=== PATIENT | male | born 1950 | race Caucasian/White ===

== ENCOUNTER 2017-07-27 13:05 | Observation (INO) ==
--- NOTE | 2017-07-27 13:20 | Emergency Department Note ---
Disposition Clinical Impression: Transient cerebral ischemia Qualifiers: Transient cerebral ischemia type: unspecified Qualified Code(s): G45.9 - Transient cerebral ischemic attack, unspecified Disposition: Admitted As Inpatient Condition: Good Referrals: NONE,PCP [Primary Care Provider] - Forms: ED Satisfaction Letter Time of Disposition: 13:47 Neuro HPI - General Chief Complaint: ED Neuro Symptoms/Deficit Stated Complaint: Neuro Symptoms Time Seen by Provider: 07/27/17 13:18 Source: patient Mode of arrival: ambulatory Limitations: no limitations Nursing Notes Reviewed: Yes Vital Signs Reviewed: Yes - History of Present Illness HPI Narrative: 66-year-old was out hunting mushrooms and developed acute onset of left arm numbness and left facial numbness and some slurred speech. Patient got a new partial yesterday so is not sure if the speech is related to that or if it was a new onset today. Onset of Symptoms Date: 07/27/17 Onset of Symptoms Time: 11:00 Symptom Onset Unknown: No Timing confirmed by: other (Patient) Location: speech, left face, left arm History of same: No Severity: mild, moderate Quality: numbness Symptoms Improving: No Improves with: none Worsens with: none Context: sudden onset On Anticoagulants: No Associated symptoms: Reports: denies other symptoms - Related Data Home Medications: Home Medications Medication Instructions Recorded Confirmed Amlodipine Besylate 10 mg PO DAILY 02/20/17 07/27/17 Aspirin [Lo-Dose Aspirin EC] 81 mg PO DAILY 02/20/17 07/27/17 Gluc 2Kcl/Chondr/Sotero Hy/Hy AC 1 tab PO DAILY 02/20/17 07/27/17 [Glucosamine & Chondroitin Cap] Multivitamin [One Daily Essential] 1 tab PO DAILY 02/20/17 07/27/17 Pantoprazole Sodium [Protonix] 40 mg PO BID 02/20/17 07/27/17 Previous Rx's Medication Instructions Recorded Clindamycin HCl 150 mg PO Q6H 2 Days #7 capsule 02/19/17 Allergies/Adverse Reactions: Allergies Allergy/AdvReac Type Severity Reaction Status Date / Time No Known Allergies Allergy Verified 07/27/17 13:34 All systems ED: reviewed and negative except as stated. Constitutional: Denies: fever, chills, weakness, weight change Eyes: Denies: eye pain, eye discharge, vision change ENT ED: Denies: ear pain, throat pain, dental pain, hearing loss, epistaxis, congestion, dysphagia Cardiovascular: Denies: chest pain, palpitations, dyspnea on exertion, edema, syncope Respiratory: Denies: cough, dyspnea, wheezes, hemoptysis, stridor Gastrointestinal: Denies: abdominal pain, nausea, vomiting, diarrhea, constipation, hematemesis, melena, hematochezia Genitourinary: Denies: urgency, dysuria, frequency, hematuria Musculoskeletal: Denies: back pain, neck pain, arthralgia, myalgia Integumentary: Denies: rash, abrasion, lesions Neurological: Reports: numbness, other (Some slurred speech). Denies: headache , weakness, paresthesias, confusion, abnormal gait, vertigo Psychiatric: Denies: anxiety, depression, suicidal thoughts, homicidal thoughts , auditory hallucinations, visual hallucinations Endocrine: Denies: fatigue Hematological/Lymphatic: Denies: easy bleeding, easy bruising Allergic/Immunologic: Denies: facial swelling, urticaria Past Medical History - Past Medical History Psychiatric history: Reports: no psych history - Social History Smoking Status: Former smoker Smokeless Tobacco Status: No Alcohol use: Reports: rarely Drug use: Reports: none Physical Exam - General Limitations: no limitations General appearance: alert, in no apparent distress - Head Head exam: atraumatic, normocephalic, normal inspection - Eye Eye exam: Present: normal appearance, PERRL, EOMI - ENT ENT exam: normal exam, normal oropharynx, mucous membranes moist - Neck Neck exam: Present: normal inspection, full ROM, trachea midline - Chest Chest inspection: Present: normal inspection, symmetric chest wall rise - Respiratory Respiratory exam: Present: normal lung sounds bilaterally - Cardiovascular Cardiovascular exam: Present: regular rate, normal rhythm, normal heart sounds - Abdominal Exam Abdominal exam: Present: soft, Non-Tender. Absent: tenderness, distention, guarding, rebound, rigidity - Extremities Exam Extremities exam: Present: normal inspection, full ROM. Absent: tenderness, pedal edema - Expanded Lower Extremity Exam Neurovascular/Tendon exam: Present: sensory deficit (Some slurred speech and right arm), other Gait: not tested/not observed - Back Exam Back exam: Present: normal inspection, full ROM. Absent: tenderness - Neurological Exam Neurological exam: Present: alert, oriented X3 - Psychiatric Psychiatric exam: Present: normal affect, normal mood - Skin Skin exam: Present: warm, dry, intact, normal color Course - Reevaluation(s) Reevaluation #1: 66-year-old with acute onset right arm numbness and right facial numbness. A stroke alert was called evaluated by [facility] did not feel patient was a TPA candidate recommended admission for stroke workup. Time: 14:36 - Consultations Consultation #1: Consult with Dr. Selin Freeman neurology [facility] stroke alert. The patient was evaluated via tele-stroke and was not found to be a TPA candidate but recommended admission for stroke workup. Time: 13:45 Consultation #2: Discussed with Dr. Conteh, admit Time: 14:57 Vital Signs Temperature 97.9 F 07/27/17 13:11 Pulse Rate 81 07/27/17 13:11 Respiratory Rate 18 07/27/17 13:11 Blood Pressure 150/84 07/27/17 13:11 O2 Sat by Pulse Oximetry 96 07/27/17 13:11 Temperature 97.9 F 07/27/17 13:20 Pulse Rate 70 07/27/17 14:00 Respiratory Rate 20 07/27/17 14:00 Blood Pressure 150/95 07/27/17 14:00 O2 Sat by Pulse Oximetry 96 07/27/17 14:00 Oxygen Delivery Oxygen Delivery Room Air Neuro Symptoms/Deficit - Lab Data Result diagrams: 07/27/17 13:22 07/27/17 13:22 Lab Results 07/27/17 07/27/17 07/27/17 Range/Units 13:09 13:22 13:22 WBC 7.2 (4.3-11.1) K/mcL RBC 4.88 (4.19-5.50) M/mcL Hgb 14.9 (12.9-16.9) g/dL Hct 43.2 (37.5-50.1) % MCV 88.5 (83.0-100.0) fL MCH 30.5 (28.0-33.3) pg MCHC 34.5 (31.6-35.5) g/dL RDW 12.6 (11.5-14.5) % Plt Count 210 (140-400) K/mcL MPV 9.5 (9.4-12.4) fL Immature Gran % 0.3 (0-4) % Seg Neutrophils % 71.9 % Lymphocytes % 16.0 % Monocytes % 8.4 % Eosinophils % 2.8 % Basophils % 0.6 % Neutrophils # 5.2 (1.6-8.9) K/mcL Lymphocytes # 1.2 (0.6-4.6) K/mcL Monocytes # 0.6 (0.0-1.3) K/mcL Eosinophils # 0.2 (0.0-0.6) K/mcL Basophils # 0.0 (0.0-0.2) K/mcL PT 11.7 (9.4-12.1) Seconds INR 1.1 APTT 34.0 (26.0-36.0) Seconds Sodium (136-145) mEq/L Potassium (3.5-5.1) mEq/L Chloride (98-107) mEq/L Carbon Dioxide (23-29) mEq/L BUN (8-23) mg/dL Creatinine (0.70-1.30) mg/dL Est GFR ( Amer) (> 60) Est GFR (Non-Af Amer) (> 60) BUN/Creatinine Ratio (6-26) Glucose (70-105) mg/dL POC Glucose 103 H (70-99) mg/dL Calculated Osmolality (280-300) Calcium (8.6-10.3) mg/dL Troponin I (< 0.04) ng/mL 07/27/17 Range/Units 13:22 WBC (4.3-11.1) K/mcL RBC (4.19-5.50) M/mcL Hgb (12.9-16.9) g/dL Hct (37.5-50.1) % MCV (83.0-100.0) fL MCH (28.0-33.3) pg MCHC (31.6-35.5) g/dL RDW (11.5-14.5) % Plt Count (140-400) K/mcL MPV (9.4-12.4) fL Immature Gran % (0-4) % Seg Neutrophils % % Lymphocytes % % Monocytes % % Eosinophils % % Basophils % % Neutrophils # (1.6-8.9) K/mcL Lymphocytes # (0.6-4.6) K/mcL Monocytes # (0.0-1.3) K/mcL Eosinophils # (0.0-0.6) K/mcL Basophils # (0.0-0.2) K/mcL PT (9.4-12.1) Seconds INR APTT (26.0-36.0) Seconds Sodium 141 (136-145) mEq/L Potassium 3.9 (3.5-5.1) mEq/L Chloride 109 H (98-107) mEq/L Carbon Dioxide 26 (23-29) mEq/L BUN 18 (8-23) mg/dL Creatinine 1.28 (0.70-1.30) mg/dL Est GFR ( Amer) > 60 (> 60) Est GFR (Non-Af Amer) 57 L (> 60) BUN/Creatinine Ratio 14 (6-26) Glucose 98 (70-105) mg/dL POC Glucose (70-99) mg/dL Calculated Osmolality 294 (280-300) Calcium 9.7 (8.6-10.3) mg/dL Troponin I < 0.03 (< 0.04) ng/mL - EKG Data EKG attestation: Yes I reviewed and interpreted this EKG. EKG shows normal: sinus rhythm Rate: normal Rhythm: NSR Crescent/QRS: normal Interpretation: no acute changes NIH Stroke Scale - Level of Consciousness LOC: Alert - LOC Questions LOC Questions: Answers both correctly - LOC Commands LOC Commands: Performs both correctly - Best Gaze Best Gaze: Normal - Visual Visual: No visual loss - Facial Palsy Facial Palsy: Normal - Motor Arms Motor Arm-Left: No drift for 10 seconds Motor Arm-Right: No drift for 10 seconds - Motor Legs Motor Leg-Left: No drift for 5 seconds Motor Leg-Right: No drift for 5 seconds - Limb Ataxia Limb Ataxia: Normal, No Ataxia - Sensory Sensory: Mild to moderate loss, "not as sharp" - Best Language Best Language: No aphasia - Dysarthria Dysarthria: Mild, slurs some words - Extinction and Inattention Extinction and Inattention: Normal - NIHSS Total Score NIHSS Total Score: 2 TPA Checklist - Eligibilty for IV tPA 1. LKW equal to or less than 4.5 hours be before treatment: Yes 2. Clinical diagnosis of ischemic stroke causing deficit: No 3. Age 18 years or older: Yes - Contraindications 4. Evidence of intracranial hemorrhage on pretreatment CT: No 5. Presentation suggests subarachnoid hem, even if CT normal: No 6. CT shows multilobar infarction: No 7. Known neoplasm, arteriovenous malformation, or aneurysm: No 8. Significant head trauma (w/ LOC) or CVA in last 3 months: No 9. BP elevated (systolic > 185 or diastolic > 110): No 10. Abnormal Blood Glucose (<50 or >400mg/dl): No 11. Active internal bleeding [PM.TPA15]: No 12. Known bleeding risk (including; not limited to 13-15): No 13. Heparin/argatroban/bivalirudin w/in 48hrs & PTT > normal: No 14. Platelet count less than 100,000/MM3: No 15. Current or recent use of anticoagualants (see protocol): No - Warnings/Precautions Considerations 16. Prior ischemic stroke within last 3 months: No 17. Recent history of intracranial hemorrhage: No 18. : No 19. Current/recent use Effient (7 days) or Brilinta (5 days): No 20. Arterial puncture at non compressible site or LP >7days: No 21. Major surgery or serious trauma in last 14 days: No 22. GI or urinary tract hemorrhage in last 21 days: No 23. NC involving left anterior myocardium in last 3 months: No 24. Suspected or known infective endocarditis/pericarditis: No - LKW: 3-4.5 hrs Add. Warnings/Precautions 21. oral anticoag other than warfarin regardles of last dose: No Patient/family understanding: The patient/family members have been counseled and understood the risk, benefit , and alternatives of treatment.
[2017-07-27 13:28] LABS: Basophils % 0.6 %; Eosinophils % 2.8 %; Hematocrit 43.2 % (37.5-50.1); Hemoglobin 14.9 g/dL (12.9-16.9); Immature Granulocytes % 0.3 % (0-4); Mean Corpuscular HGB Conc 34.5 g/dL (31.6-35.5); Mean Corpuscular Hemoglobin 30.5 pg (28.0-33.3); Mean Corpuscular Volume 88.5 fL (83.0-100.0); Mean Platelet Volume 9.5 fL (9.4-12.4); Monocytes % 8.4 %; Platelet Count 210 K/mcL (140-400); Red Blood Count 4.88 M/mcL (4.19-5.50); Red Cell Distribution Width 12.6 % (11.5-14.5); Segmented Neutrophils % 71.9 %
[2017-07-27 13:29] LABS: Eosinophils # 0.2 K/mcL (0.0-0.6); Lymphocytes # 1.2 K/mcL (0.6-4.6); Monocytes # 0.6 K/mcL (0.0-1.3); Neutrophils # 5.2 K/mcL (1.6-8.9)
[2017-07-27 13:37] LABS: INR 1.1; Prothrombin Time 11.7 Seconds (9.4-12.1)
[2017-07-27 13:43] LABS: BUN/Creatinine Ratio 14 (6-26); Blood Urea Nitrogen 18 mg/dL (8-23); Calcium 9.7 mg/dL (8.6-10.3); Carbon Dioxide 26 mEq/L (23-29); Chloride 109 mEq/L (98-107); Glucose 98 mg/dL (70-105); Osmolality,Calculated 294 (280-300); Potassium 3.9 mEq/L (3.5-5.1); Sodium 141 mEq/L (136-145); eGFR For African Americans > 60 (> 60); eGFR For Non-African Americans 57 (> 60)
[2017-07-27 13:48] LABS: Troponin I < 0.03 ng/mL (< 0.04)
[2017-07-27] MEDS ORDERED: Aspirin 81 MG TAB.CHEW PO ONE (15:06)
--- NOTE | 2017-07-27 15:40 | Internal Med History&Physical ---
<Jose Maddox - Last Filed: 07/27/17 16:39> Date of Encounter: 07/27/17 Time of Encounter: 15:15 Internal Medicine - H&P: HPI Chief complaint: RUE and R Facial Numbness Admitted From: Home Plans for Post Hospital Care: Home History of present illness: Mr. Winn is a 66 year old male with prior medical history of hypertension and GERD who presented to [facility] this afternoon after development of RUE and R facial numbness at 1100 today. He reports that he had been [place] and suddenly developed numbness. He states that at the same time he felt somewhat lightheaded and stumbled a little, but did not lose consciousness and recovered quickly. He states that he then drove himself to the hospital. After he had been at [facility] for a little bit he developed a slight headache, but denies having had this earlier. [facility]eneuro was contacted and he was evaluated initially by Dr. Selin Freeman who recommended admission for CVA workup as he was not a candidate for TPA. He denies having any weakness, loss of vision, or slurred speech. Past Med Surg Social Fam HX - Past Medical History Medical history: GERD, hyperlipidemia, hypertension Psychiatric history: no psych history - Social History Smoking Status: Former smoker Smokeless Tobacco Status: No Alcohol use: rarely Drug use: none Internal Medicine - H&P: Meds Clindamycin HCl 150 mg PO Q6H 2 Days #7 capsule 02/19/17 [Rx] Amlodipine Besylate 10 mg PO DAILY 02/20/17 [History] Aspirin [Lo-Dose Aspirin EC] 81 mg PO DAILY 02/20/17 [History] Gluc 2Kcl/Chondr/Sotero Hy/Hy AC [Glucosamine & Chondroitin Cap] 1 tab PO DAILY [History] Multivitamin [One Daily Essential] 1 tab PO DAILY 02/20/17 [History] Pantoprazole Sodium [Protonix] 40 mg PO BID 02/20/17 [History] 3 Allergy/AdvReac Type Severity Reaction Status Date / Time No Known Allergies Allergy Verified 07/27/17 13:34 - Constitutional Constitutional: no chills, no fatigue, no fever(s), no weakness - EENT Eyes: no blurry vision, no change in vision, no diplopia, no loss of peripheral vision, no loss of vision, no pain, no photophobia Ears: decreased hearing (chronic hearing loss in R ear) Nose, mouth and throat: other (Dentures placed yesterday) - Cardiovascular Cardiovascular ROS IM: lightheadedness (transient, as per HPI), no chest pain, no diaphoresis, no dyspnea, no palpitations, no syncope - Respiratory Respiratory: no cough, no dyspnea, no pain on inspiration - Gastrointestinal Gastrointestinal: no abdominal pain, no constipation, no diarrhea, no nausea, no vomiting - Genitourinary Genitourinary ROS male: no dysuria, no hematuria - Musculoskeletal Musculoskeletal ROS IM: numbness (as per HPI), no muscle weakness, no neck pain , no tingling - Neurological Neurological ROS: abnormal hearing (chronic R hearing loss), headache(s), numbness (as per HPI), no confusion, no dizziness, no focal weakness, no frequent falls, no loss of vision, no tingling, no tremor(s), no weakness - Constitutional Vitals: Temp Pulse Resp BP Pulse Ox 97.9 F 68 20 148/93 97 07/27/17 13:20 07/27/17 15:04 07/27/17 15:04 07/27/17 15:04 07/27/17 15:04 General appearance: Present: cooperative, A&O X 3, pleasant, obese - Head Head exam: Present: atraumatic, normocephalic - Eye Eye exam: Present: EOMI, normal appearance, PERRL, sclera anicteric. Absent: conjunctival injection Pupils: Present: normal accommodation, PERRL - ENT ENT exam: Present: mucous membranes moist - Neck Neck exam general surgery: Present: supple, trachea midline. Absent: nuchal rigidity Additional comments: No carotid bruits on ascultation - Respiratory Respiratory exam: Present: CTAB. Absent: rales, respiratory distress, rhonchi, stridor, wheezes - Cardiovascular Cardiovascular exam: Present: RRR, +S1, +S2. Absent: JVD, rubs - GI/Abdominal GI/Abdominal exam: Present: normal bowel sounds, soft. Absent: guarding, tenderness - Extremities Exam Extremities exam: Present: normal inspection, warm, radial pulses palpable and symmetrical. Absent: pedal edema - Neurological Exam Neurological exam: Present: alert, CN II-XII intact, motor sensory deficit ( Numbness in right arm, shoulder and lower face), oriented X3, reflexes normal, strengths equal and symetr throughout. Absent: facial droop (difficult to ascertain as patient had dental work done yesterday), speech deficit (patient had dentures placed yesterday) - Psychiatric Psychiatric exam: Present: normal affect, normal mood. Absent: agitated, anxious - Skin Skin exam: Present: dry, intact. Absent: diaphoretic, rash Internal Med - H&P Results - Labs CBC & Chem 7: 07/27/17 13:22 07/27/17 13:22 - Assessment and plan (1) Transient cerebral ischemia Current Visit: Yes Status: Acute Assessment and plan: Patient has continued numbness in RUE and R face that has not improved since this morning No other deficits noted CT performed 07/27/17 showed no acute abnormalities No significant findings seen in pt's labs Will consult neurology and appreciate their recommendations Will obtain carotid dopplers and Echocardiogram MRI of patient head/brain Place on telemetry Patient given full dose aspirin in ER will continue low dose aspirin Start lipitor Allow permissive hypertension and hold patient home amlodipine will hold unless sbp > 180 Qualifiers: Transient cerebral ischemia type: unspecified Qualified Code(s): G45.9 - Transient cerebral ischemic attack, unspecified (2) Hypertension Current Visit: Yes Status: Chronic Assessment and plan: Patient has chronic htn and is normally on amlodipine Will allow permissive hypertension and hold amlodipine for now will give amlodipine for sbp > 180 Qualifiers: Hypertension type: essential hypertension Qualified Code(s): I10 - Essential (primary) hypertension (3) DVT prophylaxis Current Visit: Yes Status: Acute Assessment and plan: 5000 U heparin SQ TID - Time Spent With Patient Total time spent is greater than 50% in coordination of care (as documented) at patient's floor/unit and/or counseling patient: <SilvanoMike myersGeovani T - Last Filed: 07/27/17 17:00> Date of Encounter: 07/27/17 Internal Medicine - H&P: HPI History of present illness: Mr. Winn is a 66 year old male All Systems PM: A 10-system review of systems was performed and is negative for pertinent findings except as documented above in the HPI. - Constitutional Vitals: Temp Pulse Resp BP Pulse Ox 97.9 F 69 20 142/92 99 07/27/17 13:20 07/27/17 16:25 07/27/17 16:25 07/27/17 16:25 07/27/17 16:00 Internal Med - H&P Results - Labs CBC & Chem 7: 07/27/17 13:22 07/27/17 13:22 - Attending Attestation I examined this patient and my medical decision-making was reviewed with the Resident Physician on 07/27/17. I agree with the documented findings, disposition and treatment plan as described except to the extent set forth below. RUE, Chest wall and facial sensory deficits, no carotid bruit, no motor weakness or cerebellar symptoms or signs. Agree with plan, as documented above - Assessment and plan (1) Transient cerebral ischemia Current Visit: Yes Status: Acute Qualifiers: Transient cerebral ischemia type: unspecified Qualified Code(s): G45.9 - Transient cerebral ischemic attack, unspecified (2) Hypertension Current Visit: Yes Status: Chronic Qualifiers: Hypertension type: essential hypertension Qualified Code(s): I10 - Essential (primary) hypertension (3) DVT prophylaxis Current Visit: Yes Status: Acute - Time Spent With Patient Total time spent is greater than 50% in coordination of care (as documented) at patient's floor/unit and/or counseling patient:
[2017-07-27] MEDS ORDERED: Naloxone 0.4 MG/ML INJ IVP PRN (15:41)
--- NOTE | 2017-07-27 19:52 | Event Note ---
<Elen Josue - Last Filed: 07/27/17 19:50> Date of Encounter: 07/27/17 Time of Encounter: 19:50 Received Critical result from Radiology. 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 Called Dr. Davis and made him aware of results. He advised to keep ASA 81mg and start Plavix, continue with cardiac monitoring. Signout will be given to morning team in am. <Dino Orozco - Last Filed: 07/28/17 21:38> Date of Encounter: 07/28/17 I examined this patient and my medical decision-making was reviewed with the Resident Physician. I agree with the documented findings, disposition and treatment plan as described except to the extent set forth below. agree with above
[2017-07-27] MEDS: *HR* Heparin 5,000 UNIT/ML VIAL SQ SCH (21:12)
[2017-07-28] MEDS: *HR* Heparin 5,000 UNIT/ML VIAL SQ SCH (05:08)
[2017-07-28 05:51] LABS: Basophils % 0.5 %; Eosinophils # 0.3 K/mcL (0.0-0.6); Eosinophils % 5.1 %; Hematocrit 39.7 % (37.5-50.1); Immature Granulocytes % 0.2 % (0-4); Lymphocytes # 1.3 K/mcL (0.6-4.6); Mean Corpuscular HGB Conc 35.3 g/dL (31.6-35.5); Mean Corpuscular Hemoglobin 31.6 pg (28.0-33.3); Mean Corpuscular Volume 89.6 fL (83.0-100.0); Mean Platelet Volume 9.8 fL (9.4-12.4); Monocytes # 0.6 K/mcL (0.0-1.3); Monocytes % 10.5 %; Neutrophils # 3.6 K/mcL (1.6-8.9); Platelet Count 199 K/mcL (140-400); Red Blood Count 4.43 M/mcL (4.19-5.50); Red Cell Distribution Width 12.6 % (11.5-14.5); Segmented Neutrophils % 61.7 %
[2017-07-28 06:12] LABS: BUN/Creatinine Ratio 14 (6-26); Blood Urea Nitrogen 16 mg/dL (8-23); Carbon Dioxide 25 mEq/L (23-29); Chloride 109 mEq/L (98-107); Chol/HDL Ratio 5.2 (0-4.9); Cholesterol 167 mg/dL (< 200); Glucose 89 mg/dL (70-105); HDL Cholesterol 32 mg/dL (40-59); LDL Cholesterol,Calculated 106 mg/dL (0-99); Magnesium 2.2 mg/dL (1.6-2.6); Osmolality,Calculated 293 (280-300); Potassium 3.9 mEq/L (3.5-5.1); Sodium 141 mEq/L (136-145); Triglycerides 145 mg/dL (< 150); eGFR For African Americans > 60 (> 60); eGFR For Non-African Americans > 60 (> 60)
[2017-07-28] MEDS ORDERED: Aspirin Enteric Coated 81 MG Tablet PO SCH (09:00)
--- NOTE | 2017-07-28 09:33 | Neurology - Consult Note ---
Date of Encounter: 07/28/17 Time of Encounter: 07:25 Assessment and Plan (1) Left middle cerebral artery stroke Current Visit: Yes Status: Acute Per MRI report patient noted to have a left frontal lobe infarct without any significant focal motor weakness. He did have a sensory symptoms predominantly on the right side but otherwise he is doing fairly well. He has been on aspirin at home I suggest adding Plavix aspirin could be discontinued after a few days of overlap do not think that he would require dual antiplatelet therapy. Following's are my recommendations. For secondary stroke prevention patient should continue daily antiplatelet medication and vascular risk factor modification. Order the following test, *MRI of the brain without contrast. *Antiplatelet medication, Plavix 75 mg daily. *NO Need for physical therapy/ rehabilitation, patient did not have any focal motor deficit that would require any rehabilitation * To reduce the risk of future ischemic stroke patient need continued vascular risk modification, following's are the recommended guidelines LDL goal less than 70 MG per deciliter Diabetes management Blood pressure control should achieve less than 130/80 mmHg BP management should aim to achieve long-term control in a reasonable amount of time. weight management goal for BMI is 18.5 -24.9 Kg/m2 Alcohol : No more than 2 drinks per day for men Patient to continue to follow-up with his primary care physician for continued outpatient risk factor management and modification. If echocardiogram / carotid are negative and no evidence of any atrial fibrillation patient remained stable he could be discharged later in the day History of Present Illness HPI: Mr. Winn is a 66 year old male with PMH of hypertension and GERD who presented to [facility] this afternoon after development of RUE and R facial numbness at 1100 today. He reports that he had been [place] in [place] and suddenly developed numbness. He also felt somewhat lightheaded and stumbled a little, but did not lose consciousness and recovered quickly. . After he had been at [facility] for a little bit he developed a slight headache, but denies having had this earlier. [facility] was contacted Considering patient low NIH score he was not a candidate for any TPA therapy was admitted for further workup Later he had a MRI of the brain which confirmed left frontal lobe infarct Patient denies any new focal motor weakness beside his paresthesias on the right side he is not having much symptoms He denies having any weakness, loss of vision, or slurred speech. Past Med Surg Social Fam HX - Past Medical History Medical history: GERD, hyperlipidemia, hypertension Psychiatric history: no psych history - Social History Smoking Status: Former smoker Smokeless Tobacco Status: No Alcohol use: rarely Drug use: none Medications and Allergies Clindamycin HCl 150 mg PO Q6H 2 Days #7 capsule 02/19/17 [Rx] Amlodipine Besylate 10 mg PO DAILY 02/20/17 [History] Aspirin [Lo-Dose Aspirin EC] 81 mg PO DAILY 02/20/17 [History] Gluc 2Kcl/Chondr/Sotero Hy/Hy AC [Glucosamine & Chondroitin Cap] 1 tab PO DAILY [History] Multivitamin [One Daily Essential] 1 tab PO DAILY 02/20/17 [History] Pantoprazole Sodium [Protonix] 40 mg PO BID 02/20/17 [History] 3 Allergy/AdvReac Type Severity Reaction Status Date / Time No Known Allergies Allergy Verified 07/27/17 13:34 All Systems: The remainder of the systems were reviewed and are negative Physical Examination - Vital Signs Vital Signs: Initial Vital Signs Temp Pulse Resp BP Pulse Ox 97.9 F 81 18 150/84 96 07/27/17 13:11 07/27/17 13:11 07/27/17 13:11 07/27/17 13:11 07/27/17 13:11 - Exam Exam: GENERAL: Comfortable in no acute distress HEENT: Normal LUNGS: CTA HEART: RRR, S1 S2 Audible, no murmur EXTREMITIES: No Pedal edema. DETAILED NEUROLOGICAL EXAMINATION: MENTAL STATUS: Oriented to person, place, date and situation. Memory: knows the President, Aware of recent events Recent Memory Intact Cranial Nerve Examination: CN - II: Visual Acuity, Field of Vision Normal, Fundus examination: No disk edema, Pupils- size shape reaction to light and accommodation: All normal. CN III, IV, : External ocular movements were intact, Pupils were reactive, Nodrooping of the eyelids CN V: Sensation over the face to light touch and pinprick all normal. Corneal reflexes not tested, jaw jerk normal. CN VII: No facial asymmetry, no flattening of nasolabial folds, no difficulty in closing the eyes, no loss of forehead wrinkles, no difficulty in eye-closure, frowning raising eyebrows. CNVIII: No significant hearing loss CN IX, X: Uvula centralized not deviated, Gag reflex: Not tested CN X1: Sternocleidomastoid, trapezius, normal or evidence of any weakness. CN X11: No Dysarthria, no wasting or fibrilation f tongue muscles, no deviation, tongue muscle strength normal. Motor examination: No hypertrophy, tone was normal, power grade 0-5 Upper limbs Proximal- No difficulty in lifting the arms above the head. Distal- No weakness in distal muscles On formal testing 5/5 all over Lower limbs On formal testing 5/5 all over Coordination: [id number] normal. Target pursuit normal finger tapping normal, Rapid alternating moment of wrist normal Sensory system: Superficial sensations- Touch normal. Pain- Pinprick, Temperature all normal, Deep sensation normal, Joint position sense normal. Cortical sensation, Tactile discrimination, localization and extinction all normal. Deep tendon reflexes. Symmetrical bilateral, No evidence of Babinski. No sign of meningeal irritation Gait Examination: Patient is is standing without any difficulty with his gait and balance is trying to adjust thermostat in the room and he feels too hot Results - Laboratory Findings CBC and BMP: 07/28/17 05:12 07/28/17 05:12 Abnormal lab findings: Abnormal lab results Chloride 109 mEq/L (98-107) H 07/28/17 05:12 POC Glucose 103 mg/dL (70-99) H 07/27/17 13:09 LDL Cholesterol, Calc 106 mg/dL (0-99) H 07/28/17 05:12 HDL Cholesterol 32 mg/dL (40-59) L 07/28/17 05:12 Cholesterol/HDL Ratio 5.2 (0-4.9) H 07/28/17 05:12 - Diagnostic Findings Additional findings: Mri of the brain shows acute left frontal lobe infarct Consult Discharge Plan - Plan Referrals: Lavell Nair DO [Primary Care Provider] - 08/07/17 9:30 am
--- NOTE | 2017-07-28 10:47 | Internal Med Progress Note ---
Date of Encounter: 07/28/17 Time of Encounter: 10:44 - Assessment and plan (1) Transient cerebral ischemia Current Visit: Yes Status: Acute Assessment and plan: Patient continues to have RUE and R sided numbness without other deficits. CT without acute findings. MRI revealing acute left frontal lobe infarcts in the middle cerebral artery territory. Neurology consult reviewed, recommend aspirin and plavix, to discontinue aspirin in 1 week. Pending echo and pending carotid dopplers. Echo with EF 60%, normal LV, mild LV diastolic dysfunction, normal RV, negative for agitates saline study. Ultrasound carotid revealed normal ight side and left nonstenotic plaques in mid CCA. Continue Lipitor -Okay for discharge. Qualifiers: Transient cerebral ischemia type: other Qualified Code(s): G45.8 - Other transient cerebral ischemic attacks and related syndromes (2) Hypertension Current Visit: Yes Status: Chronic Assessment and plan: Patient has chronic htn and is normally on amlodipine Bp controlled 126-131/79-89 Will allow permissive hypertension and hold amlodipine for now will give amlodipine for sbp > 180 Qualifiers: Hypertension type: essential hypertension Qualified Code(s): I10 - Essential (primary) hypertension (3) DVT prophylaxis Current Visit: Yes Status: Acute Assessment and plan: heparin subcutneous for dvt ppx. - Time Spent With Patient Total time spent is greater than 50% in coordination of care (as documented) at patient's floor/unit and/or counseling patient: - Subjective Interval history: Patient did well overnight without new complaints. Continues to have numbness of right neck, right upper chest, and right upper arm. Improved right arm strength. Denies fevers, chills, sweats, headaches, nausea, vomiting, changes in vision, chest pain, shorntess of breath or cough, abdominal pain, change in bowels or bladder, new weakness, new loss of sensation, or rash. - Constitutional Vitals: Temp Pulse Resp BP Pulse Ox 97.7 F 67 17 126/79 96 07/28/17 07:22 07/28/17 07:22 07/28/17 07:22 07/28/17 07:22 07/28/17 07:22 General appearance: Present: cooperative, A&O X 3, pleasant, no acute distress, obese, answers questions appropriately - Head Head exam: Present: atraumatic, normal inspection, normocephalic - Eye Eye exam: Present: EOMI, normal appearance, PERRL - ENT ENT exam: Present: mucous membranes moist, normal exam, normal oropharynx - Neck Neck exam general surgery: Present: full ROM, normal inspection, supple, trachea midline - Respiratory Respiratory exam: Present: CTAB. Absent: rales, rhonchi, wheezes - Cardiovascular Cardiovascular exam: Present: RRR, +S1, +S2 - GI/Abdominal GI/Abdominal exam: Present: normal bowel sounds, soft. Absent: tenderness - Extremities Exam Extremities exam: Present: full ROM, normal inspection, warm, radial pulses palpable and symmetrical. Absent: pedal edema - Neurological Exam Neurological exam: Present: alert, strengths equal and symetr throughout. Absent: facial droop, speech deficit Additional comments: decreased sensation right upper chest, right arm, and right side of neck - Skin Skin exam: Present: dry, intact, normal color, warm Internal Medicine: Result - Labs CBC & Chem 7: 07/28/17 05:12 07/28/17 05:12 Labs: Short CBC 07/28/17 Range/Units 05:12 WBC 5.7 (4.3-11.1) K/mcL Hgb 14.0 (12.9-16.9) g/dL Hct 39.7 (37.5-50.1) % Plt Count 199 (140-400) K/mcL Neutrophils # 3.6 (1.6-8.9) K/mcL BMP 07/28/17 05:12 Sodium 141 Potassium 3.9 Chloride 109 H Carbon Dioxide 25 BUN 16 Creatinine 1.12 Glucose 89 Calcium 9.0 - ABG Interpretation ABG results: PT/INR, D-dimer PT 11.7 Seconds (9.4-12.1) 07/27/17 13:22 - Impressions Impressions Brain MRI 07/27/17 15:41 IMPRESSION: Acute left frontal lobe infarcts in the middle cerebral artery territory. D/ / 07/27/2017 19:22:02 Mayo Fletcher MD / [facility] Interpreting Provider: Mayo Fletcher MD Consult Discharge Plan - Plan Referrals: Lavell Nair DO [Primary Care Provider] - 08/07/17 9:30 am
[2017-07-28 11:44] VITALS: BP 135/81
[2017-07-28 12:26] LABS: Estimated Average Glucose 117 mg/dl; Hemoglobin A1C 5.7 %
--- NOTE | 2017-07-28 13:43 | Discharge Summary ---
<Chuck Navarro - Last Filed: 07/28/17 14:02> - NOTES TO OUTPATIENT PROVIDER Notes to Outpatient Provider: Patient has a left frontal lobe infarcts from middle cerebral artery territotry with symptoms of numbness of right arm face and upper chest. Echo normal, Carotid with right normal, left with mid CCA nonstenotic plaques. Discharged with Lipitor 40mg and to take plavix, but to continue with aspirin for next 7 days only. Continue amlodipine on discharge. A1C 5.7, counseled on prediabetes. Date of Encounter: 07/28/17 Time of Encounter: 13:41 - Discharge Diagnosis (1) Transient cerebral ischemia Priority: Primary Status: Acute Assessment and Plan: Patient continues to have RUE and R sided numbness without other deficits. CT without acute findings. MRI revealing acute left frontal lobe infarcts in the middle cerebral artery territory. Neurology consult reviewed, recommend aspirin and plavix, to discontinue aspirin in 1 week. Pending echo and pending carotid dopplers. Echo with EF 60%, normal LV, mild LV diastolic dysfunction, normal RV, negative for agitates saline study. Ultrasound carotid revealed normal ight side and left nonstenotic plaques in mid CCA. Continue Lipitor -Okay for discharge. Qualifiers: Transient cerebral ischemia type: other Qualified Code(s): G45.8 - Other transient cerebral ischemic attacks and related syndromes (2) Hypertension Priority: Secondary Status: Chronic Assessment and Plan: Patient has chronic htn and is normally on amlodipine Bp controlled 126-131/79-89 Will allow permissive hypertension and hold amlodipine for now will give amlodipine for sbp > 180 Qualifiers: Hypertension type: essential hypertension Qualified Code(s): I10 - Essential (primary) hypertension (3) Prediabetes Priority: Secondary Status: Acute Assessment and Plan: A1C 5.7% Hospital course: Mr. Winn is a 66 year old male - Time Spent with Patient Total time spent providing and/or coordinating discharge services: - Discharge Medications Prescriptions: Atorvastatin [Lipitor] 40 mg PO HS #30 tablet Clopidogrel [Plavix] 75 mg PO DAILY #30 tablet Home Medications: Amlodipine Besylate 10 mg PO DAILY 02/20/17 [History] Aspirin [Lo-Dose Aspirin EC] 81 mg PO DAILY 02/20/17 [History] Gluc 2Kcl/Chondr/Sotero Hy/Hy AC [Glucosamine & Chondroitin Cap] 1 tab PO DAILY [History] Multivitamin [One Daily Essential] 1 tab PO DAILY 02/20/17 [History] Pantoprazole Sodium [Protonix] 40 mg PO BID 02/20/17 [History] Atorvastatin [Lipitor] 40 mg PO HS #30 tablet 07/28/17 [Rx] Clopidogrel [Plavix] 75 mg PO DAILY #30 tablet 07/28/17 [Rx] Allergies/Adverse Reactions: 3 Allergy/AdvReac Type Severity Reaction Status Date / Time No Known Allergies Allergy Verified 07/27/17 13:34 Date of admission: 07/27/17 15:25 Primary care physician: Lavell Nair, Consults: 07/27/17 15:45 Consult to Neurology [CONS] Routine Consulting Provider: [facility] Reason for Consult: Numbness since 11am. CVA/TIA Call Completed: Yes Discharging clinician: Chuck Peguero) Anticipated date of discharge: 07/28/17 - Constitutional Vitals: Temp Pulse Resp BP Pulse Ox 97.6 F 61 18 135/81 96 07/28/17 11:42 07/28/17 11:42 07/28/17 11:42 07/28/17 11:42 07/28/17 11:42 General appearance: Present: cooperative, A&O X 3, pleasant, no acute distress, obese, answers questions appropriately - Head Head exam: Present: atraumatic, normal inspection, normocephalic - Eye Eye exam: Present: EOMI, normal appearance, PERRL - ENT ENT exam: Present: mucous membranes moist, normal exam - Neck Neck exam general surgery: Present: full ROM, normal inspection, supple, trachea midline - Respiratory Respiratory exam: Present: CTAB - Cardiovascular Cardiovascular exam: Present: RRR - Extremities Exam Extremities exam: Present: full ROM, normal inspection, warm, radial pulses palpable and symmetrical. Absent: tenderness - Neurological Exam Neurological exam: Present: alert, CN II-XII intact, normal gait, oriented X3, no focal deficits, strengths equal and symetr throughout. Absent: facial droop , speech deficit Additional comments: numbness of right face, right neck, right upper chest, and right upper extremity with normal strenght all extremities. - Skin Skin exam: Present: dry, intact, normal color, warm - Patient Status Disposition: Home, Self-Care Condition: Good Functional capacity at discharge: independent ambulation Overall status at discharge: patient is progressing back to baseline - Discharge Instructions Instructions: Atorvastatin (By mouth), Clopidogrel (By mouth), Ischemic Stroke (DC), Ischemic Stroke (GEN), Chronic Hypertension (DC) Follow Up With: Lavell Nair DO [Primary Care Provider] - 08/07/17 9:30 am - Diet and Activity Activity: return to work once cleared by your PCP/specialist Diet: diabetic diet, low fat, low cholesterol, low salt diet <Geovani Vega T - Last Filed: 07/28/17 15:06> Date of Encounter: 07/28/17 - Discharge Diagnosis (1) Transient cerebral ischemia Status: Acute Qualifiers: Transient cerebral ischemia type: other Qualified Code(s): G45.8 - Other transient cerebral ischemic attacks and related syndromes (2) Hypertension Status: Chronic Qualifiers: Hypertension type: essential hypertension Qualified Code(s): I10 - Essential (primary) hypertension (3) Prediabetes Status: Acute Hospital course: Mr. Winn is a 66 year old male Discharge discussed with: patient, family, nurse, case management, financial services consultant - Time Spent with Patient Total time spent providing and/or coordinating discharge services: Less than 30 minutes Date of admission: 07/27/17 15:25 Primary care physician: Lavell Nair, Consults: 07/27/17 15:45 Consult to Neurology [CONS] Routine Consulting Provider: [facility] Reason for Consult: Numbness since 11am. CVA/TIA Call Completed: Yes - Constitutional Vitals: Temp Pulse Resp BP Pulse Ox 97.6 F 61 18 135/81 96 07/28/17 11:42 07/28/17 11:42 07/28/17 11:42 07/28/17 11:42 07/28/17 11:42 - Attending Attestation I examined this patient and my medical decision-making was reviewed with the Resident Physician on 07/28/17. I agree with the documented findings, disposition and treatment plan as described except to the extent set forth below. Admitted to observation with Ischemic CVA of the L MCA territory, tele without events, EKG is sinus, ECHO and Carotid unremarkable. Neurology eval noted-for ASA and Plavix overlap for one week, then, continue plavix and Lipitor , continue home dose of Norvasc. Neuro deficit is only RUE numbness, no motor, speech or facial paralysis. New pre-DM diagnosis, follow up with PCP. Stable to be discharged home on current meds. Plan of care discussed, verbalizes understanding. Rest of details as in resident physician's documentation
--- NOTE | 2017-07-29 13:34 | Electrocardiograph Report ---
[place] [id number] Test Date: 2017-07-27 Pat Name: Librado Winn Department: 104 Room: [facility] Gender: M Emergency Room Specialist: TMR : 1950 Requested By: Geovani Vega Order Number: [id number] Reading MD: Samuel Stevens Measurements Intervals [place] Rate: 82 P: 41 ND: 155 QRS: -14 QRSD: 93 T: 53 QT: 348 QTc: 386 Interpretive Statements SINUS RHYTHM BASELINE ARTIFACT Electronically Signed On 07-29-2017 13:32:34 EDT by Samuel Stevens
== END 2017-07-28 15:09 | disposition home or self-care (01) ==
LOC: SUATTDRO → EMEROO 13:05 → 2NENU 13:05 → SUATTDRO 15:25 → 2NENU 16:39
PROVIDERS: ADMIT Internal Medicine; ATTEND Internal Medicine